=== PATIENT | male | born 1975 | race Hispanic/Latino ===

== ENCOUNTER 2017-09-02 10:29 | Emergency (ER) | payer SELFPAY ==
[2017-09-02] MEDS ORDERED: KETOROLAC TROMETHAMINE 60 MG/2 ML VIAL ONE (10:48)
[2017-09-02] MEDS ORDERED: PENICILLIN V POTASSIUM 500 MG TABLET ONE (10:48)
== END 2017-09-02 10:56 | disposition home or self-care (01) ==
LOC: EDH 10:29
DX: K04.7 Periapical abscess without sinus (principal); E11.9 Type 2 diabetes mellitus without complications; Z79.4 Long term (current) use of insulin
CPT/HCPCS: 96372; 99283; J1885